=== PATIENT | female | born 1955 | race Caucasian/White ===

== ENCOUNTER 2018-05-22 21:57 | Outpatient (REF) | payer MEDICAID, SELFPAY ==
[2018-05-22 22:12] LABS: Anion Gap 9.2 mmol/L (3-11); BUN 43 mg/dL (7-18); CO2 26.8 mmol/L (21.0-32.0); CREATININE 1.85 mg/dL (0.55-1.02); Calcium 8.6 mg/dL (8.5-10.1); Chloride 103 mmol/L (98-107); Estimated GFR 27.53 (mL/min/1.73m2); Glucose 100 mg/dL (70-100); Potassium 4.8 mmol/L (3.5-5.1); Sodium 139 mmol/L (136-145)
[2018-05-23 06:47] LABS: Vitamin D 25 Total 35.4 ng/ml (30-100)
== END 2018-05-22 22:17 ==
LOC: LBN 21:57
PROVIDERS: Visit Provider Nurse Practitioner Family
DX: I50.9 Heart failure, unspecified (principal); E55.9 Vitamin D deficiency, unspecified
CPT/HCPCS: 80048; 82306

== ENCOUNTER 2018-12-04 20:51 | Outpatient (REF) | payer MEDICAID, SELFPAY ==
[2018-12-04 21:48] LABS: Ferritin 138 ng/mL (8-388)
== END 2018-12-04 21:11 ==
LOC: LBN 20:51
PROVIDERS: Visit Provider Nurse Practitioner
DX: G25.81 Restless legs syndrome (principal)
CPT/HCPCS: 82728

== ENCOUNTER 2019-06-23 13:10 | Outpatient (REF) | payer MEDICAID, SELFPAY ==
[2019-06-23 21:57] LABS: COMMENT (LAB VIEW ONLY) 29.95 mg/dL; Microalb ug/mg Crea 19.4 ug/mg Cr
== END 2019-06-23 13:30 ==
LOC: NCHCN 13:10
PROVIDERS: Visit Provider Nurse Practitioner Family
DX: E11.9 Type 2 diabetes mellitus without complications (principal); N28.9 Disorder of kidney and ureter, unspecified
CPT/HCPCS: 82043; 82570

== ENCOUNTER 2019-06-26 22:17 | Outpatient (REF) | payer MEDICAID, SELFPAY ==
[2019-06-26 22:43] LABS: Anion Gap 9.6 mmol/L (3-11); BUN 16 mg/dL (7-18); CO2 30.4 mmol/L (21.0-32.0); CREATININE 1.04 mg/dL (0.55-1.02); Calcium 8.5 mg/dL (8.5-10.1); Chloride 101 mmol/L (98-107); Estimated GFR 53.35 (mL/min/1.73m2); Glucose 117 mg/dL (70-100); Potassium 3.8 mmol/L (3.5-5.1); Sodium 141 mmol/L (136-145)
== END 2019-06-26 22:37 ==
LOC: NCHCN 22:17
PROVIDERS: PCP Nurse Practitioner Family; Visit Provider Family Medicine
DX: I50.9 Heart failure, unspecified (principal); Z51.81 Encounter for therapeutic drug level monitoring
CPT/HCPCS: 80048

== ENCOUNTER 2020-06-24 21:14 | Outpatient (REF) | payer MEDICARE, MEDICAID, SELFPAY ==
[2020-06-24 21:56] LABS: Anion Gap 11.4 mmol/L (3-11); BUN 18 mg/dL (7-18); CO2 27.6 mmol/L (21.0-32.0); CREATININE 1.08 mg/dL (0.55-1.02); Calcium 8.8 mg/dL (8.5-10.1); Chloride 100 mmol/L (98-107); Estimated GFR 50.92 (mL/min/1.73m2); Glucose 110 mg/dL (74-106); Potassium 4.2 mmol/L (3.5-5.1); Sodium 139 mmol/L (136-145)
[2020-06-24 22:10] LABS: Hemoglobin A1C 6.5 % (<5.7)
== END 2020-06-24 21:34 ==
LOC: NCHCN 21:14
PROVIDERS: PCP Nurse Practitioner Family; Visit Provider Nurse Practitioner Family
DX: E11.9 Type 2 diabetes mellitus without complications (principal); I50.9 Heart failure, unspecified
CPT/HCPCS: 80048; 83036

== ENCOUNTER 2020-12-22 21:56 | Outpatient (REF) | payer MEDICARE, MEDICAID, SELFPAY ==
[2020-12-22 22:21] LABS: *AMPHETAMINES SCREEN URINE Negative (Negative); *BARBITURATES SCREEN URINE Negative (Negative); *BENZODIAZEPINES SCREEN URINE Negative (Negative); Cannabinoids THC Negative (Negative); Cocaine Screen,Urine Negative (Negative); METHADONE URINE SCREEN Negative (Negative); OPIATES URINE SCREEN Positive (Negative)
[2020-12-22 22:22] LABS: Tricyclic Antidepressants Negative (Negative)
[2020-12-22 22:24] LABS: COMMENT (LAB VIEW ONLY) 80.33 mg/dL; Microalb ug/mg Crea 6.3 ug/mg Cr
== END 2020-12-22 21:57 | disposition home or self-care (01) ==
LOC: LBN 21:56
PROVIDERS: PCP Nurse Practitioner Family; Visit Provider Nurse Practitioner Family
DX: F43.10 Post-traumatic stress disorder, unspecified (principal); E11.9 Type 2 diabetes mellitus without complications; G89.29 Other chronic pain; R82.5 Elevated urine levels of drugs, medicaments and biological substances
CPT/HCPCS: 80307; 82043; 82570

== ENCOUNTER 2021-01-21 20:24 | Outpatient (REF) | payer MEDICARE, MEDICAID, SELFPAY ==
[2021-01-21 21:04] LABS: Hemoglobin A1C 6.9 % (<5.7)
== END 2021-01-21 20:25 | disposition home or self-care (01) ==
LOC: LBN 20:24
PROVIDERS: PCP Nurse Practitioner Family; Visit Provider Nurse Practitioner Family
DX: E11.9 Type 2 diabetes mellitus without complications (principal)
CPT/HCPCS: 83036

== ENCOUNTER 2021-05-04 21:29 | Outpatient (REF) | payer MEDICARE, MEDICAID, SELFPAY ==
[2021-05-04 22:06] LABS: Hemoglobin A1C 5.9 % (<5.7)
== END 2021-05-04 21:30 | disposition home or self-care (01) ==
LOC: LBN 21:29
PROVIDERS: PCP Nurse Practitioner Family; Visit Provider Nurse Practitioner Family
DX: E11.9 Type 2 diabetes mellitus without complications (principal)
CPT/HCPCS: 83036

== ENCOUNTER 2021-06-21 17:12 | Outpatient (REF) | payer MEDICARE, MEDICAID, SELFPAY ==
[2021-06-21 21:13] LABS: HGB 11.8 g/dL (11.2-15.7); MCH 28.1 pg (27.0-33.0); MCHC 31.1 % (32.0-36.0); MCV 90.5 fL (80-95); MPV 10.8 fL (8.0-11.0); Platelet Count 320 10^3/uL (130-400); RDW 13.9 % (11.7-14.6); WBC 10.52 10^3/uL (4.4-10.8)
[2021-06-21 21:38] LABS: ALT 17 U/L (14-59); AST 16 U/L (15-37); Albumin 3.5 g/dL (3.4-5.0); Alkaline Phosphatase 92 U/L (46-116); Anion Gap 8.9 mmol/L (3-11); BUN 35 mg/dL (7-18); Bilirubin, Total 0.2 mg/dL (0.2-1.0); CO2 27.1 mmol/L (21.0-32.0); CREATININE 1.4 mg/dL (0.55-1.02); Calcium 8.9 mg/dL (8.5-10.1); Chloride 107 mmol/L (98-107); Estimated GFR 37.62 (mL/min/1.73m2); Glucose 118 mg/dL (74-106); Potassium 4.6 mmol/L (3.5-5.1); Sodium 143 mmol/L (136-145); TSH 2.22 uIU/mL (0.36-3.74); Total Protein 7.7 g/dL (6.4-8.2)
[2021-06-21 21:54] LABS: *AMPHETAMINES SCREEN URINE Negative (Negative); *BARBITURATES SCREEN URINE Negative (Negative); *BENZODIAZEPINES SCREEN URINE Negative (Negative); Cannabinoids THC Negative (Negative); Cocaine Screen,Urine Negative (Negative); METHADONE URINE SCREEN Negative (Negative); OPIATES URINE SCREEN Positive (Negative)
[2021-06-21 21:57] LABS: Tricyclic Antidepressants Negative (Negative)
== END 2021-06-21 17:13 | disposition home or self-care (01) ==
LOC: NCHCN 17:12
PROVIDERS: PCP Nurse Practitioner Family; Visit Provider Nurse Practitioner Family
DX: I48.92 Unspecified atrial flutter; Z51.81 Encounter for therapeutic drug level monitoring; I50.9 Heart failure, unspecified
CPT/HCPCS: 80053; 80307; 85027; 84443

== ENCOUNTER 2021-07-18 21:23 | Outpatient (REF) | payer MEDICARE, MEDICAID, SELFPAY ==
[2021-07-18 22:19] LABS: Microalb ug/mg Crea 6.6 ug/mg Cr
[2021-07-18 22:20] LABS: *AMPHETAMINES SCREEN URINE Negative (Negative); *BARBITURATES SCREEN URINE Negative (Negative); *BENZODIAZEPINES SCREEN URINE Negative (Negative); Cannabinoids THC Negative (Negative); Cocaine Screen,Urine Negative (Negative); METHADONE URINE SCREEN Negative (Negative); OPIATES URINE SCREEN Positive (Negative)
[2021-07-18 22:24] LABS: Tricyclic Antidepressants Negative (Negative)
== END 2021-07-18 21:24 | disposition home or self-care (01) ==
LOC: LBN 21:23
PROVIDERS: PCP Nurse Practitioner Family; Visit Provider Nurse Practitioner Family
DX: Z51.81 Encounter for therapeutic drug level monitoring (principal); I50.9 Heart failure, unspecified; J44.9 Chronic obstructive pulmonary disease, unspecified
CPT/HCPCS: 80307; 82043; 82570

== ENCOUNTER 2021-07-20 22:07 | Outpatient (REF) | payer MEDICARE, MEDICAID, SELFPAY ==
[2021-07-20 22:48] LABS: Anion Gap 10.2 mmol/L (3-11); BUN 31 mg/dL (7-18); CO2 25.8 mmol/L (21.0-32.0); CREATININE 1.3 mg/dL (0.55-1.02); Calcium 9.2 mg/dL (8.5-10.1); Chloride 100 mmol/L (98-107); Estimated GFR 40.98 (mL/min/1.73m2); Glucose 89 mg/dL (74-106); Potassium 4.5 mmol/L (3.5-5.1); Sodium 136 mmol/L (136-145)
== END 2021-07-20 22:08 | disposition home or self-care (01) ==
LOC: LBN 22:07
PROVIDERS: PCP Nurse Practitioner Family; Visit Provider Nurse Practitioner Family
DX: I48.92 Unspecified atrial flutter (principal); I50.9 Heart failure, unspecified; Z79.01 Long term (current) use of anticoagulants
CPT/HCPCS: 80048

== ENCOUNTER 2022-04-21 09:53 | Outpatient (REF) | payer MEDICARE, MEDICAID, SELFPAY ==
[2022-04-21 18:10] LABS: Albumin ug/mg Crea 11 (<30); Albumin, Ur 1.5 mg/dL (See Note)
== END 2022-04-21 09:54 | disposition home or self-care (01) ==
LOC: NCHCN 09:53
PROVIDERS: PCP Nurse Practitioner Family; Visit Provider Nurse Practitioner Family
DX: E11.9 Type 2 diabetes mellitus without complications (principal)
CPT/HCPCS: 82043; 82570

== ENCOUNTER 2022-04-27 21:21 | Outpatient (REF) | payer MEDICARE, MEDICAID, SELFPAY ==
[2022-04-27 22:21] LABS: HCT 34.8 % (36.0-46.0); HGB 10.7 g/dL (11.2-15.7); MCHC 30.7 % (32.0-36.0); MCV 88 fL (80-95); MPV 10.8 fL (8.0-11.0); Platelet Count 343 10^3/uL (130-400); RBC 3.97 10^6/uL (3.93-5.22); RDW 16.5 % (11.7-14.6); RDW-SD 53.4 fL; WBC 11.72 10^3/uL (4.4-10.8)
[2022-04-27 22:48] LABS: Anion Gap 7.7 mmol/L (3-11); BUN 45 mg/dL (7-18); CO2 29.3 mmol/L (21.0-32.0); CREATININE 1.5 mg/dL (0.55-1.02); Calcium 9.3 mg/dL (8.5-10.1); Chloride 100 mmol/L (98-107); Estimated GFR 37.96 (mL/min/1.73m2); Glucose 101 mg/dL (74-106); Potassium 4.8 mmol/L (3.5-5.1); Sodium 137 mmol/L (136-145); TSH 1.83 uIU/mL (0.36-3.74)
== END 2022-04-27 21:22 | disposition home or self-care (01) ==
LOC: NCHCN 21:21
PROVIDERS: PCP Nurse Practitioner Family; Visit Provider Nurse Practitioner Family
DX: I10 Essential (primary) hypertension (principal)
CPT/HCPCS: 80048; 85027; 84443

== ENCOUNTER 2022-07-07 20:58 | Outpatient (REF) | payer MEDICARE, MEDICAID, SELFPAY ==
[2022-07-07 21:34] LABS: Abs Immature Grans 0.03 10^3/uL (0.0-0.06); Absolute Basophil Count 0.08 10^3/uL (0.0-0.2); Absolute Lymphocyte Count 2.82 10^3/uL (1.2-3.4); Absolute Monocyte Count 0.71 10^3/uL (0.1-0.8); Basophils % 0.8; Eosinophils % 1.9; HCT 30.1 % (36.0-46.0); HGB 8.9 g/dL (11.2-15.7); Immature Grans % 0.3; Lymphocytes % 27.3; MCH 27.1 pg (27.0-33.0); MCHC 29.6 % (32.0-36.0); MCV 92 fL (80-95); MPV 10.3 fL (8.0-11.0); Monocytes % 6.9; Neutrophils % 62.8; Platelet Count 416 10^3/uL (130-400); RBC 3.29 10^6/uL (3.93-5.22); RDW 15.5 % (11.7-14.6); RDW-SD 52.4 fL; WBC 10.34 10^3/uL (4.4-10.8)
[2022-07-07 21:57] LABS: Iron 26 ug/dL (50-170); Total Iron Binding Capacity 432 ug/dL (250-450); Transferrin Sat 6 % (15-50)
[2022-07-07 22:24] LABS: ALT 15 U/L (14-59); AST 12 U/L (15-37); Albumin 3.7 g/dL (3.4-5.0); Alkaline Phosphatase 89 U/L (46-116); BUN 42 mg/dL (7-18); Bilirubin, Total 0.2 mg/dL (0.2-1.0); CREATININE 1.7 mg/dL (0.55-1.02); Calcium 8.9 mg/dL (8.5-10.1); Chloride 99 mmol/L (98-107); Estimated GFR 32.66 (mL/min/1.73m2); Folate 8.9 ng/mL (8.6-20.0); Glucose 110 mg/dL (74-106); Potassium 5.6 mmol/L (3.5-5.1); Sodium 133 mmol/L (136-145); Vitamin B12 448 pg/mL (193-986)
== END 2022-07-07 20:59 | disposition home or self-care (01) ==
LOC: LBN 20:58
PROVIDERS: PCP Nurse Practitioner Family; Visit Provider Nurse Practitioner Family
DX: E11.9 Type 2 diabetes mellitus without complications (principal); I10 Essential (primary) hypertension; D64.9 Anemia, unspecified
CPT/HCPCS: 80053; 82607; 82746; 83036; 83540; 83550; 85025

== ENCOUNTER 2022-09-26 21:25 | Outpatient (REF) | payer MEDICARE, MEDICAID, SELFPAY ==
[2022-09-26 21:41] LABS: HCT 29.4 % (36.0-46.0); HGB 8.5 g/dL (11.2-15.7); MCH 23.7 pg (27.0-33.0); MCHC 28.9 % (32.0-36.0); MCV 82 fL (80-95); MPV 10.4 fL (8.0-11.0); Platelet Count 428 10^3/uL (130-400); RBC 3.58 10^6/uL (3.93-5.22); RDW 16.6 % (11.7-14.6); RDW-SD 49.9 fL
[2022-09-26 21:44] LABS: BUN 40 mg/dL (7-18); CREATININE 1.8 mg/dL (0.55-1.02); Chloride 103 mmol/L (98-107); Glucose 108 mg/dL (74-106); Potassium 4.7 mmol/L (3.5-5.1); Sodium 139 mmol/L (136-145)
[2022-09-27 09:23] LABS: Iron 34 ug/dL (50-170); Total Iron Binding Capacity 417 ug/dL (250-450); Transferrin Sat 8 % (15-50)
[2022-09-27 17:42] LABS: Ferritin 6 ng/mL (10-291)
== END 2022-09-26 21:26 | disposition home or self-care (01) ==
LOC: NCHCN 21:25
PROVIDERS: PCP Nurse Practitioner Family; Visit Provider Nurse Practitioner Family
DX: D64.9 Anemia, unspecified (principal); N18.9 Chronic kidney disease, unspecified
CPT/HCPCS: 80048; 85027; 82728; 83540; 83550

== ENCOUNTER 2022-11-14 21:24 | Outpatient (REF) | payer MEDICARE, MEDICAID, SELFPAY ==
[2022-11-14 21:02] LABS: Abs Immature Grans 0.04 10^3/uL (0.0-0.06); Absolute Basophil Count 0.05 10^3/uL (0.0-0.2); Absolute Lymphocyte Count 2.29 10^3/uL (1.2-3.4); Absolute Monocyte Count 0.72 10^3/uL (0.1-0.8); Absolute Neutrophil Count 6.48 10^3/uL (1.2-6.7); Basophils % 0.5; HGB 8.8 g/dL (11.2-15.7); Immature Grans % 0.4; Lymphocytes % 23.4; MCH 24.1 pg (27.0-33.0); MCHC 30.3 % (32.0-36.0); MCV 80 fL (80-95); MPV 10.4 fL (8.0-11.0); Monocytes % 7.4; Neutrophils % 66.3; Platelet Count 391 10^3/uL (130-400); RBC 3.65 10^6/uL (3.93-5.22); RDW 19.6 % (11.7-14.6); RDW-SD 56.2 fL; WBC 9.78 10^3/uL (4.4-10.8)
== END 2022-11-14 21:25 | disposition home or self-care (01) ==
LOC: LBN 21:24
PROVIDERS: PCP Nurse Practitioner Family; Visit Provider Nurse Practitioner Family
DX: D64.9 Anemia, unspecified (principal)
CPT/HCPCS: 85025

== ENCOUNTER 2022-12-04 20:37 | Outpatient (REF) | payer MEDICARE, MEDICAID, SELFPAY ==
[2022-12-04 22:11] LABS: HCT 32.9 % (36.0-46.0); HGB 9.9 g/dL (11.2-15.7); MCH 24.3 pg (27.0-33.0); MCHC 30.1 % (32.0-36.0); MCV 81 fL (80-95); MPV 10.2 fL (8.0-11.0); Platelet Count 388 10^3/uL (130-400); RBC 4.07 10^6/uL (3.93-5.22); RDW 19.9 % (11.7-14.6); RDW-SD 58.6 fL
[2022-12-04 22:20] LABS: Iron 24 ug/dL (50-170); Total Iron Binding Capacity 373 ug/dL (250-450); Transferrin Sat 6 % (15-50)
== END 2022-12-04 20:38 | disposition home or self-care (01) ==
LOC: LBN 20:37
PROVIDERS: PCP Nurse Practitioner Family; Visit Provider Nurse Practitioner Family
DX: K92.2 Gastrointestinal hemorrhage, unspecified (principal); D50.9 Iron deficiency anemia, unspecified
CPT/HCPCS: 85027; 83540; 83550

== ENCOUNTER 2023-01-03 21:46 | Outpatient (REF) | payer MEDICARE, MEDICAID, SELFPAY ==
[2023-01-03 21:51] LABS: HCT 37.4 % (36.0-46.0); HGB 11.4 g/dL (11.2-15.7); MCH 25.2 pg (27.0-33.0); MCHC 30.5 % (32.0-36.0); MCV 83 fL (80-95); MPV 11.3 fL (8.0-11.0); Platelet Count 295 10^3/uL (130-400); RBC 4.53 10^6/uL (3.93-5.22); RDW-SD 61.2 fL; WBC 7.96 10^3/uL (4.4-10.8)
[2023-01-03 22:11] LABS: Anion Gap 11.3 mmol/L (3-11); BUN 72 mg/dL (7-18); CO2 25.7 mmol/L (21.0-32.0); CREATININE 2.9 mg/dL (0.55-1.02); Calcium 9.3 mg/dL (8.5-10.1); Chloride 104 mmol/L (98-107); Estimated GFR 17.21 (mL/min/1.73m2); Glucose 138 mg/dL (74-106); Potassium 4.7 mmol/L (3.5-5.1); Sodium 141 mmol/L (136-145)
[2023-01-03 22:48] LABS: Hemoglobin A1C 5.8 % (<5.7)
[2023-01-03 23:44] LABS: RDW 20.4 % (11.7-14.6)
== END 2023-01-03 21:47 | disposition home or self-care (01) ==
LOC: NCHCN 21:46
PROVIDERS: PCP Nurse Practitioner Family; Visit Provider Nurse Practitioner Family
DX: D50.9 Iron deficiency anemia, unspecified (principal); D64.9 Anemia, unspecified; E11.9 Type 2 diabetes mellitus without complications
CPT/HCPCS: 80048; 85027; 83036

== ENCOUNTER 2023-02-05 21:36 | Outpatient (REF) | payer MEDICARE, MEDICAID, SELFPAY ==
[2023-02-05 22:23] LABS: Anion Gap 7.7 mmol/L (3-11); BUN 23 mg/dL (7-18); CO2 28.3 mmol/L (21.0-32.0); CREATININE 1.8 mg/dL (0.55-1.02); Calcium 8.8 mg/dL (8.5-10.1); Chloride 99 mmol/L (98-107); Glucose 110 mg/dL (74-106); Potassium 4.9 mmol/L (3.5-5.1); Sodium 135 mmol/L (136-145)
[2023-02-05 22:50] LABS: Prothrombin Time 57.2 sec (9.3-11.0)
[2023-02-05 22:59] LABS: INR 5.7 (0.9-1.1)
== END 2023-02-05 21:37 | disposition home or self-care (01) ==
LOC: NCHCN 21:36
PROVIDERS: PCP Nurse Practitioner Family; Visit Provider Nurse Practitioner Family
DX: Z51.81 Encounter for therapeutic drug level monitoring (principal); I87.2 Venous insufficiency (chronic) (peripheral); I48.92 Unspecified atrial flutter; I50.9 Heart failure, unspecified; Z79.01 Long term (current) use of anticoagulants
CPT/HCPCS: 80048; 85610

== ENCOUNTER 2023-03-29 21:26 | Outpatient (REF) | payer MEDICARE, MEDICAID, SELFPAY ==
[2023-03-29 21:36] LABS: Abs Immature Grans 0.03 10^3/uL (0.0-0.06); Absolute Basophil Count 0.08 10^3/uL (0.0-0.2); Absolute Eosinophil Count 0.25 10^3/uL (0.0-0.7); Absolute Lymphocyte Count 2.61 10^3/uL (1.2-3.4); Absolute Monocyte Count 0.74 10^3/uL (0.1-0.8); Basophils % 0.9; Eosinophils % 2.8; HGB 10.5 g/dL (11.2-15.7); Immature Grans % 0.3; Lymphocytes % 29.6; MCH 27.6 pg (27.0-33.0); MCHC 31.8 % (32.0-36.0); MCV 87 fL (80-95); MPV 10.3 fL (8.0-11.0); Monocytes % 8.4; Platelet Count 289 10^3/uL (130-400); RBC 3.81 10^6/uL (3.93-5.22); RDW 17.2 % (11.7-14.6); RDW-SD 54.1 fL; WBC 8.81 10^3/uL (4.4-10.8)
[2023-03-29 21:49] LABS: Iron 36 ug/dL (50-170)
[2023-03-29 21:52] LABS: Hemoglobin A1C 6.3 % (<5.7)
[2023-03-29 22:03] LABS: Anion Gap 9.5 mmol/L (3-11); BUN 37 mg/dL (7-18); CO2 25.5 mmol/L (21.0-32.0); CREATININE 1.5 mg/dL (0.55-1.02); Calcium 8.8 mg/dL (8.5-10.1); Chloride 102 mmol/L (98-107); Estimated GFR 37.96 (mL/min/1.73m2); Ferritin 37 ng/mL (8-252); Glucose 102 mg/dL (74-106); Potassium 4.7 mmol/L (3.5-5.1); Sodium 137 mmol/L (136-145)
== END 2023-03-29 21:27 | disposition home or self-care (01) ==
LOC: NCHCN 21:26
PROVIDERS: PCP Nurse Practitioner Family; Visit Provider Nurse Practitioner Family
DX: E11.9 Type 2 diabetes mellitus without complications (principal); D64.9 Anemia, unspecified; I10 Essential (primary) hypertension
CPT/HCPCS: 80048; 82728; 83036; 83540; 85025

== ENCOUNTER 2023-04-16 19:57 | Outpatient (REF) | payer MEDICARE, MEDICAID, SELFPAY ==
[2023-04-16 22:35] LABS: COMMENT (LAB VIEW ONLY) 96.39 mg/dL; Microalb ug/mg Crea 12.3 ug/mg Cr
== END 2023-04-16 19:58 | disposition home or self-care (01) ==
LOC: NCHCN 19:57
PROVIDERS: PCP Nurse Practitioner Family; Visit Provider Nurse Practitioner Family
DX: E11.9 Type 2 diabetes mellitus without complications (principal)
CPT/HCPCS: 82043; 82570

== ENCOUNTER 2023-05-09 20:46 | Outpatient (REF) | payer MEDICARE, MEDICAID, SELFPAY ==
[2023-05-09 21:48] LABS: HCT 32.9 % (36.0-46.0); HGB 10.5 g/dL (11.2-15.7)
== END 2023-05-09 20:47 | disposition home or self-care (01) ==
LOC: NCHCN 20:46
PROVIDERS: PCP Nurse Practitioner Family; Visit Provider Nurse Practitioner Family
DX: D64.9 Anemia, unspecified (principal); I48.92 Unspecified atrial flutter
CPT/HCPCS: 85014; 85018

== ENCOUNTER 2023-10-26 21:16 | Outpatient (REF) | payer MEDICARE, MEDICAID, SELFPAY ==
[2023-10-26 21:48] LABS: Anion Gap 7.1 mmol/L (3-11); BUN 20 mg/dL (7-18); CO2 28.9 mmol/L (21.0-32.0); CREATININE 1.5 mg/dL (0.55-1.02); Calcium 8.8 mg/dL (8.5-10.1); Chloride 102 mmol/L (98-107); Estimated GFR 37.72 (mL/min/1.73m2); Glucose 127 mg/dL (74-106); Sodium 138 mmol/L (136-145)
[2023-10-26 21:53] LABS: HCT 33.4 % (36.0-46.0); HGB 10.3 g/dL (11.2-15.7); MCH 26.9 pg (27.0-33.0); MCHC 30.8 % (32.0-36.0); MCV 87 fL (80-95); MPV 9.8 fL (8.0-11.0); Platelet Count 413 10^3/uL (130-400); RBC 3.83 10^6/uL (3.93-5.22); RDW 15.5 % (11.7-14.6); WBC 9.11 10^3/uL (4.4-10.8)
[2023-10-26 22:03] LABS: Iron 160 ug/dL (50-170); Total Iron Binding Capacity 356 ug/dL (250-450); Transferrin Sat 45 % (15-50)
[2023-10-26 22:13] LABS: Hemoglobin A1C 6.2 % (<5.7)
[2023-10-29 19:01] LABS: Alcohol Negative mg/dL (Cutoff: 10); Amphetamines Negative; Barbiturates Negative; Benzodiazepines Negative; Cocaine Negative; Opiates Presumptive Positive ng/mL; Phencyclidine Negative ng/mL (Cutoff: 25); Tetrahydrocannabinol Negative ng/mL (Cutoff: 50)
[2023-11-02 15:38] LABS: Codeine Negative ng/mL (Cutoff: 25); Dihydrocodeine 451 ng/mL (Cutoff: 25); Hydrocodone 477 ng/mL (Cutoff: 25); Hydromorphone 215 ng/mL (Cutoff: 25); Morphine Negative ng/mL (Cutoff: 25); Naloxone Negative ng/mL (Cutoff: 25); Norhydrocodone 511 ng/mL (Cutoff: 25); Noroxycodone Negative ng/mL (Cutoff: 25); Noroxymorphone Negative ng/mL (Cutoff: 25); Opiates Interpretation Positive.
== END 2023-10-26 21:17 | disposition home or self-care (01) ==
LOC: NCHCN 21:16
PROVIDERS: PCP Nurse Practitioner Family; Visit Provider Nurse Practitioner Family
DX: I10 Essential (primary) hypertension (principal); E11.9 Type 2 diabetes mellitus without complications; D50.9 Iron deficiency anemia, unspecified; G89.4 Chronic pain syndrome; Z79.899 Other long term (current) drug therapy
CPT/HCPCS: 80048; 80307; 80361; 80362; 80365; 85027; 83036; 83540; 83550

== ENCOUNTER 2024-03-19 21:22 | Outpatient (REF) | payer MEDICARE, MEDICAID, SELFPAY ==
[2024-03-19 21:25] LABS: Abs Immature Grans 0.04 10^3/uL (0.0-0.06); Absolute Basophil Count 0.06 10^3/uL (0.0-0.2); Absolute Lymphocyte Count 3.02 10^3/uL (1.2-3.4); Absolute Monocyte Count 0.87 10^3/uL (0.1-0.8); Basophils % 0.6 %; Eosinophils % 2.9 %; HGB 10.7 g/dL (11.2-15.7); Immature Grans % 0.4 %; Lymphocytes % 29.1 %; MCH 28.1 pg (27.0-33.0); MCHC 31.5 % (32.0-36.0); MCV 89 fL (80-95); MPV 10.3 fL (8.0-11.0); Monocytes % 8.4 %; Neutrophils % 58.6 %; Platelet Count 370 10^3/uL (130-400); RBC 3.81 10^6/uL (3.93-5.22); RDW 15.9 % (11.7-14.6); RDW-SD 51.9 fL; WBC 10.39 10^3/uL (4.4-10.8)
[2024-03-19 22:03] LABS: Anion Gap 11.5 mmol/L (3-11); BUN 35 mg/dL (7-18); CO2 25.5 mmol/L (21.0-32.0); CREATININE 1.7 mg/dL (0.55-1.02); Calcium 8.9 mg/dL (8.5-10.1); Chloride 103 mmol/L (98-107); Estimated GFR 32.46 (mL/min/1.73m2); Glucose 101 mg/dL (74-106); Sodium 140 mmol/L (136-145); TSH 1.31 uIU/Ml (0.36-3.74)
== END 2024-03-19 21:23 | disposition home or self-care (01) ==
LOC: LBN 21:22
PROVIDERS: PCP Nurse Practitioner Family; Visit Provider Nurse Practitioner Family
DX: E11.9 Type 2 diabetes mellitus without complications (principal); D64.9 Anemia, unspecified; I48.92 Unspecified atrial flutter; I50.9 Heart failure, unspecified
CPT/HCPCS: 80048; 83036; 84443; 85025

== ENCOUNTER 2024-11-04 15:47 | Outpatient (REF) | payer MEDICARE, MEDICAID, SELFPAY ==
[2024-11-04 16:03] LABS: COMMENT (LAB VIEW ONLY) 90.49 mg/dL; Microalb ug/mg Crea 8.3 ug/mg Cr
== END 2024-11-04 15:48 | disposition home or self-care (01) ==
LOC: NCHCN 15:47
PROVIDERS: PCP Nurse Practitioner Family; Visit Provider Nurse Practitioner Family
DX: E11.9 Type 2 diabetes mellitus without complications (principal)
CPT/HCPCS: 82043; 82570

== ENCOUNTER 2024-12-16 12:16 | Outpatient (REF) | payer MEDICARE, MEDICAID, SELFPAY ==
[2024-12-16 18:48] LABS: HCT 34.3 % (36.0-46.0); HGB 10.4 g/dL (11.2-15.7); MCHC 30.3 % (32.0-36.0); MCV 89 fL (80-95); MPV 10.5 fL (8.0-11.0); Platelet Count 356 10^3/uL (130-400); RBC 3.85 10^6/uL (3.93-5.22); RDW 14.9 % (11.7-14.6); RDW-SD 48.2 fL; WBC 7.64 10^3/uL (4.4-10.8)
[2024-12-16 19:06] LABS: Iron 30 ug/dL (50-170); Total Iron Binding Capacity 406 ug/dL (250-450); Transferrin Sat 7 % (15-50)
[2024-12-16 19:31] LABS: ALT 25 U/L (14-59); AST 17 U/L (15-37); Albumin 3.9 g/dL (3.4-5.0); Alkaline Phosphatase 91 U/L (46-116); Anion Gap 9.5 mmol/L (3-11); BUN 58 mg/dL (7-18); Bilirubin, Total 0.2 mg/dL (0.2-1.0); CO2 24.5 mmol/L (21.0-32.0); Calcium 8.6 mg/dL (8.5-10.1); Chloride 104 mmol/L (98-107); Estimated GFR 26.54 (mL/min/1.73m2); Ferritin 17 ng/mL (8-252); Glucose 114 mg/dL (74-106); Potassium 5.9 mmol/L (3.5-5.1); Sodium 138 mmol/L (136-145); Total Protein 8.1 g/dL (6.4-8.2); Vitamin B12 458 pg/mL (193-986); Vitamin D 25 Total 58 ng/mL (30-100)
== END 2024-12-16 12:17 | disposition home or self-care (01) ==
LOC: LBN 12:16
PROVIDERS: PCP Nurse Practitioner Family; Visit Provider Nurse Practitioner Family
DX: I48.92 Unspecified atrial flutter (principal); I12.9 Hypertensive chronic kidney disease with stage 1 through stage 4 chronic kidney disease, or unspecified chronic kidney disease; N18.9 Chronic kidney disease, unspecified; D50.9 Iron deficiency anemia, unspecified
CPT/HCPCS: 80053; 82306; 85027; 82607; 82728; 83540; 83550

== ENCOUNTER 2025-01-29 10:52 | Outpatient (REF) | payer MEDICARE, MEDICAID, SELFPAY ==
[2025-01-29 11:33] LABS: HCT 34.4 % (36.0-46.0); HGB 10.5 g/dL (11.2-15.7); MCHC 30.5 % (32.0-36.0); MCV 88 fL (80-95); MPV 10.7 fL (8.0-11.0); Platelet Count 335 10^3/uL (130-400); RBC 3.89 10^6/uL (3.93-5.22); RDW 17.3 % (11.7-14.6); RDW-SD 55.9 fL; WBC 8.28 10^3/uL (4.4-10.8)
[2025-01-29 11:57] LABS: Iron 55 ug/dL (50-170); Total Iron Binding Capacity 356 ug/dL (250-450); Transferrin Sat 15 % (15-50)
[2025-01-29 12:04] LABS: Hemoglobin A1C 5.8 % (<5.7)
[2025-01-29 12:10] LABS: Anion Gap 9.8 mmol/L (3-11); BUN 32 mg/dL (7-18); CO2 28.2 mmol/L (21.0-32.0); CREATININE 1.6 mg/dL (0.55-1.02); Calcium 8.7 mg/dL (8.5-10.1); Chloride 97 mmol/L (98-107); Ferritin 32 ng/mL (8-252); Glucose 97 mg/dL (74-106); Potassium 4.1 mmol/L (3.5-5.1); Sodium 135 mmol/L (136-145)
== END 2025-01-29 10:53 | disposition home or self-care (01) ==
LOC: NCHCN 10:52
PROVIDERS: PCP Nurse Practitioner Family; Visit Provider Nurse Practitioner Family
DX: D63.1 Anemia in chronic kidney disease (principal); E11.9 Type 2 diabetes mellitus without complications; Z79.01 Long term (current) use of anticoagulants
CPT/HCPCS: 80048; 85027; 82728; 83036; 83540; 83550; 85610

== ENCOUNTER 2025-04-15 15:56 | Outpatient (REF) | payer MEDICARE, MEDICAID, SELFPAY ==
[2025-04-15 13:30] LABS: HCT 36.0 % (36.0-46.0); HGB 11.3 g/dL (11.2-15.7); MCH 29.0 pg (27.0-33.0); MCHC 31.4 % (32.0-36.0); MCV 92 fL (80-95); MPV 10.7 fL (8.0-11.0); Platelet Count 301 10^3/uL (130-400); RBC 3.90 10^6/uL (3.93-5.22); RDW 15.1 % (11.7-14.6); RDW-SD 51.2 fL; WBC 7.74 10^3/uL (4.4-10.8)
== END 2025-04-15 15:57 | disposition home or self-care (01) ==
LOC: NCHCN 15:56
PROVIDERS: PCP Nurse Practitioner Family; Visit Provider Nurse Practitioner Family
DX: D64.9 Anemia, unspecified (principal)
CPT/HCPCS: 85027